=== PATIENT | female | born 1985 | race Caucasian/White ===

== ENCOUNTER → 2018-12-02 | Outpatient (CLI) | payer OTHER ==
[~2018-12-02] MED LIST: NORCO 5-325 TA1 EACH PO; TRAMADOL 50 MG50 MG PO; ZANTAC 150MG T150 M1
[2018-12-02 21:10] LABS: T3 UPTAKE 28 % (24-39); TESTOSTERONE 12 ng/dL (8-48)
[2018-12-03 02:06] LABS: GLYCOHEMOGLOBIN (HGB A1C) 5.3 % (4.8-5.6)
[2018-12-03 07:38] LABS: INSULIN 5.6 uIU/mL (2.6-24.9)
== END ==
LOC: M.LAB 09:29
DX: E23.0 Hypopituitarism (principal); R53.83 Other fatigue